=== PATIENT | male | born 2005 | race Hispanic/Latino ===

== ENCOUNTER 2024-08-10 14:40 | Emergency (ER) | payer BC ==
[2024-08-10] MEDS ORDERED: ONDANSETRON 4 MG/2 ML VIAL ONE (15:11)
[2024-08-10] MEDS ORDERED: KETOROLAC 30 MG/ML INJ ONE (15:11)
[2024-08-10] MEDS ORDERED: MULTIVITAMINS 10 ML VIAL (INJ) IV ONE (15:11)
[2024-08-10] MEDS ORDERED: THIAMINE 200 MG/2 ML INJ ONE (15:11)
[2024-08-10] MEDS ORDERED: FOLIC ACID 5 MG/ML VIAL ONE (15:12)
[2024-08-10] MEDS ORDERED: NA CHLORIDE 0.9% 1,000 ML ONE (15:13)
--- NOTE | 2024-08-10 15:33 | RAD REPORT ---
EXAMINATION: CT HEAD WITHOUT CONTRAST CT CERVICAL SPINE WITHOUT CONTRAST CLINICAL INDICATION: Syncope. Head and neck injury status post fall. Head and neck pain TECHNIQUE: Axial CT images from the skull base to the vertex without intravenous contrast. Axial CT i mages through the cervical spine were obtained without intravenous contrast. Sagittal and coronal reformatted images were created from the data set. Coronal and sagittal reformatted images were creat ed from the data set. One or more of the following dose reduction techniques were used: Automated exposure control, adjustment of the mA and/or kV according to patient size, and/or iterative reconstr uction. Unless otherwise specified, incidental findings do not require dedicated imaging follow-up. [id number]. Comparison: none FINDINGS: An intracranial bleed is not seen. Ventricles are normal in caliber. No significant hypodensity within the brain No extra-axial fluid collection. No fluid within the sinuses/mastoids No fracture or dislocation is seen involving the cervical spine. IMPRESSION: No acute intracranial abnormality noted A cervical fracture is not seen. If the patient continues to have symptoms to suggest acute FLOAT [employer]ILDER/spinal pathology then MRI would be rec ommended
[2024-08-10 15:55] LABS: Absolute Eosinophils 0.1 K/uL (0-0.5); Absolute Lymphocytes (CBC) 1.4 K/uL (0.7-4.9); Absolute Monocytes 0.6 K/uL (0.1-1.3); Basophils % 0.4 % (0-1.3); Eosinophils % 0.7 % (0-4.4); Hematocrit 41.5 % (39.6-49.0); Hemoglobin 14.4 g/dL (13.6-17.9); Lymphocytes % 15.4 % (15.3-44.8); MCH 30.9 pg (27.0-35.0); MCHC 34.6 g/dL (32.0-36.0); MCV 89.3 fL (80-100); MPV 9.5 fL (7.6-11.3); Neutrophils % 76.5 % (41.7-73.7); Platelets 219 thou/uL (152-406); RBC Red Blood Cell Count 4.65 M/uL (4.33-5.43); Red Cell Distribution Width 13.3 % (12.1-15.2)
[2024-08-10 16:11] LABS: PT Prothrombin Time 12.1 SECONDS (10.0-13.0); PTT, Activated Partial Thromb 28.4 SECONDS (24.3-36.9); Protime INR 1.06
[2024-08-10 16:25] LABS: ALT/SGPT 23 U/L (16-61); AST/SGOT 16 U/L (15-37); Albumin 4.4 g/dL (3.4-5.0); Albumin/Globulin Ratio 1.2 (1.1-1.8); Alkaline Phosphatase 89 U/L (45-117); BUN Blood Urea Nitrogen 14 mg/dL (7-18); Bicarbonate 22 mEq/L (21-32); Bilirubin Direct 0.2 mg/dL (0-0.2); Bilirubin Indirect, Calculated 0.3 mg/dL (0.2-0.8); Bilirubin Total 0.5 mg/dL (0.2-1.0); Globulin 3.8 g/dL (2.3-3.5); Glomerular Filtration Rate 122 ml/min (=/>90); Glucose Level 99 mg/dL (74-106); Protein, Total 8.2 g/dL (6.4-8.2); Sodium Level 135 mEq/L (136-145)
--- NOTE | 2024-08-10 16:35 | EDPHYS ---
Physician Documentation [facility] Name: Sascha Banda Age: 18 yrs Sex: Male : 2005 Arrival Date: 08/10/2024 Time: 14:40 Bed 20 Private MD: ED Physician Calvin Fuller HPI: 08/10 14:49 This 18 yrs old Male presents to ER via EMS with complaints of Syncope. vincent 14:49 The patient has experienced syncope, became unresponsive, collapsed. Onset: The vincent symptoms/episode began/occurred just prior to arrival. Duration: This was a single episode, that lasted 20 second(s). Context: the episode(s) was witnessed, by family. Associated injury: Head/face: pain. Associated signs and symptoms: Pertinent positives: headache, nausea. Current symptoms: headache, that is mild, that is moderate. The patient has not experienced similar symptoms in the past. Historical: - Allergies: 14:45 No Known Allergies; bp - Immunization history:: Adult Immunizations up to date. - Infectious Disease History:: Denies. - Social history:: Smoking status: Patient denies any tobacco usage or history of. - Family history:: not pertinent. ROS: 14:49 Constitutional: Negative for fever, chills, and weight loss, Eyes: Negative for injury, vincent pain, redness, and discharge, ENT: Negative for injury, pain, and discharge, Neck: Negative for injury, pain, and swelling, Cardiovascular: Negative for chest pain, palpitations, and edema, Respiratory: Negative for shortness of breath, cough, wheezing, and pleuritic chest pain, Abdomen/GI: Negative for abdominal pain, nausea, vomiting, diarrhea, and constipation, Back: Negative for injury and pain, : Negative for injury, bleeding, discharge, and swelling, MS/Extremity: Negative for injury and deformity, Skin: Negative for injury, rash, and discoloration, Neuro: Negative for headache, weakness, numbness, tingling, and seizure, Psych: Negative for depression, anxiety, suicide ideation, homicidal ideation, and hallucinations, Allergy/Immunology: Negative for hives, rash, and allergies, Endocrine: Negative for neck swelling, polydipsia, polyuria, polyphagia, and marked weight changes, Hematologic/Lymphatic: Negative for swollen nodes, abnormal bleeding, and unusual bruising, Exam: 14:49 Constitutional: This is a well developed, well nourished patient who is awake, alert, vincent and in no acute distress. Head/Face: Normocephalic, atraumatic. Eyes: Pupils equal round and reactive to light, extra-ocular motions intact. Lids and lashes normal. Conjunctiva and sclera are non-icteric and not injected. Cornea within normal limits. Periorbital areas with no swelling, redness, or edema. ENT: Nares patent. No nasal discharge, no septal abnormalities noted. Tympanic membranes are normal and external auditory canals are clear. Oropharynx with no redness, swelling, or masses, exudates, or evidence of obstruction, uvula midline. Mucous membranes moist. Neck: Trachea midline, no thyromegaly or masses palpated, and no cervical lymphadenopathy. Supple, full range of motion without nuchal rigidity, or vertebral point tenderness. No Meningismus. Chest/axilla: Normal chest wall appearance and motion. Nontender with no deformity. No lesions are appreciated. Cardiovascular: Regular rate and rhythm with a normal S1 and S2. No gallops, murmurs, or rubs. Normal PMI, no JVD. No pulse deficits. Respiratory: Lungs have equal breath sounds bilaterally, clear to auscultation and percussion. No rales, rhonchi or wheezes noted. No increased work of breathing, no retractions or nasal flaring. Abdomen/GI: Soft, non-tender, with normal bowel sounds. No distension or tympany. No guarding or rebound. No evidence of tenderness throughout. Back: No spinal tenderness. No costovertebral tenderness. Full range of motion. Skin: Warm, dry with normal turgor. Normal color with no rashes, no lesions, and no evidence of cellulitis. MS/ Extremity: Pulses equal, no cyanosis. Neurovascular intact. Full, normal range of motion., bilateral aka Neuro: Awake and alert, GCS 15, oriented to person, place, time, and situation. Cranial nerves II-XII grossly intact. Motor strength 5/5 in all extremities. Sensory grossly intact. Cerebellar exam normal. Normal gait. Psych: Awake, alert, with orientation to person, place and time. Behavior, mood, and affect are within normal limits. 14:49 ECG was reviewed by the Attending Physician. 15:49 ECG was reviewed by the Attending Physician. [facility] Vital Signs: 14:46 BP 128 / 80; Pulse 100; Resp 18; Temp 97.8(TE); Pulse Ox 100% on R/A; Weight 61.23 kg; hb Height 5 ft. 9 in. ; Pain 7/10; 18:15 BP 131 / 75; Pulse 95; Resp 16; Pulse Ox 100% ; bp 14:46 Body Mass Index 19.94 (61.23 kg, 175.26 cm) hb 14:46 Pain Scale: Adult hb MDM: 14:45 Medical Screening Exam initiated vincent 14:51 Differential Diagnosis: aortic aneurysm, cardiac arrhythmia, emotional response, GI vincent bleed, idiopathic syncope, vasovagal episode. Data reviewed: vital signs, nurses notes, EMS record, lab test result(s), EKG, radiologic studies, CT scan. Consideration of Admission/Observation Escalation of care including admission/observation considered. I considered the following discharge prescriptions or medication management in the emergency department Medications were administered in the Emergency Department. See MAR. Independent interpretation of the following test(s) in the Emergency Department EKG: See my EKG interpretation above. Test considered but Not performed: Ultrasound no 2 d echo. Historians other than the Patient: EMS: ems well informed. Care significantly affected by the following chronic conditions: etoh heavy. Counseling: I had a detailed discussion with the patient and/or guardian regarding the historical points, exam findings, and any diagnostic results supporting the discharge/admit diagnosis, lab results, radiology results, the need for outpatient follow up, for definitive care, a family practitioner. 08/10 14:48 Order name: Acetaminophen; Complete Time: 16:35 [facility] 08/10 14:48 Order name: Basic Metabolic Panel; Complete Time: 16:35 [facility] 08/10 14:48 Order name: CBC with Diff; Complete Time: 16:19 [facility] 08/10 14:48 Order name: ETOH Level; Complete Time: 16:35 [facility] 08/10 14:48 Order name: Hepatic Function; Complete Time: 16:35 [facility] 08/10 14:48 Order name: PT-INR; Complete Time: 16:19 [facility] 08/10 14:48 Order name: Ptt, Activated; Complete Time: 16: [facility] 08/10 14:48 Order name: Salicylate; Complete Time: 18:25 [facility] 08/10 14:48 Order name: Urinalysis w/ reflexes; Complete Time: 18:25 [facility] 08/10 14:48 Order name: Urine Drug Screen; Complete Time: 18:25 [facility] 08/10 14:48 Order name: CT Head C Spine; Complete Time: 15:46 [facility] 08/10 14:48 Order name: EKG; Complete Time: 14:49 [facility] 08/10 14:48 Order name: EKG - Nurse/Tech; Complete Time: 15:50 [facility] 08/10 14:48 Order name: IV Saline Lock; Complete Time: 15:25 [facility] 08/10 14:48 Order name: Labs collected and sent; Complete Time: 15:25 [facility] 08/10 14:48 Order name: Suicide Screening ([place]); Complete Time: 15:07 [facility] 08/10 16:20 Order name: PO challenge: juice; Complete Time: 16:27 [facility] EC:49 Rate is 78 beats/min. Rhythm is regular. QRS Patten is Normal. [place] interval is shortened vincent at 106 msec. QRS interval is normal. QT interval is normal. No Q waves. T waves are Normal. No ST changes noted. Clinical impression: NSR w/ Non-specific ST/T Changes and No evidence of ischemia. Interpreted by me. Reviewed by me. Administered Medications: 15:24 Drug: Thiamine IV 100 mg IV at per protocol once Route: IV; Rate: per protocol; Site: bp right forearm; 18:30 Follow up: IV Status: Completed infusion bp 15:25 Drug: NS 0.9% IV 1000 ml IV at 1000 ml once; to be given as a bolus over 60 minutes bp Route: IV; Rate: 1000 ml; Site: right forearm; 18:30 Follow up: IV Status: Completed infusion bp 15:25 Drug: Banana Bag - (Multivitamin IV 1 amp, NS 0.9% IV 1000 ml, Thiamine IV 100 mg, bp foLIC Acid IVPB 1 mg) IV at 500 ml/hr once Route: IV; Rate: 500 ml/hr; Site: right forearm; 18:30 Follow up: IV Status: Completed infusion bp 15:25 Drug: Ondansetron IVP 4 mg IVP once; over 2 minutes Route: IVP; Site: right forearm; bp 18:30 Follow up: Response: No adverse reaction bp 15:25 Drug: Ketorolac IVP 15 mg IVP once Route: IVP; Site: right forearm; bp 18:30 Follow up: Response: No adverse reaction bp Disposition Summary: 08/10/24 16:35 Discharge Ordered Notes: Location: Home vincent Problem: new vincent Symptoms: have improved vincent Condition: Stable vincent Diagnosis - Syncope Near vincent - Alcohol abuse, uncomplicated vincent Followup: vincent - With: Private Physician - When: 2 - 3 days - Reason: Recheck today's complaints, Continuance of care, Re-evaluation by your physician Discharge Instructions: - Discharge Summary Sheet vincent - Alcohol Use Disorder vincent - Near-Syncope vincent - Substance Use Disorder vincent - Supporting Someone With an Addiction vincent - Near-Syncope, [id number] vincent - Alcohol Abuse and Nutrition vincent Forms: - Medication Reconciliation Form vincent - Antibiotic Education vincent - Prescription Opioid Use vincent - Patient Portal Instructions vincent - Leadership Thank You Letter vincent Signatures: Dispatcher [employer] Calvin Christianson MD MD cha Baxter, Heather, RN RN Lazaro Magallon RN RN bp
--- NOTE | 2024-08-10 16:35 | ER ---
Nurse's Notes [facility] Name: Sascha Banda Age: 18 yrs Sex: Male : 2005 Arrival Date: 08/10/2024 Time: 14:40 Bed 20 Private MD: Diagnosis: Syncope Near;Alcohol abuse, uncomplicated Presentation: 08/10 14:46 Chief complaint: EMS states: Witnessed syncopal episode, fell and hit head on hard hb floor, now c/o headache. Reports drinking "a lot" of alcohol last night. Coronavirus screen: At this time, the client does not indicate any symptoms associated with coronavirus-19. Ebola Screen: No symptoms or risks identified at this time. Initial Sepsis Screen: Does the patient meet any 2 criteria? No. Patient's initial sepsis screen is negative. Does the patient have a suspected source of infection? No. Patient's initial sepsis screen is negative. Risk Assessment: Do you want to hurt yourself or someone else? Patient reports no desire to harm self or others. Onset of symptoms was August 10, 2024. 14:46 Method Of Arrival: EMS: [facility] 14:46 Acuity: ROWAN 3 hb Triage Assessment: 14:50 General: Appears in no apparent distress. Behavior is calm, cooperative, appropriate bp for age. Pain: Denies pain. EENT: No deficits noted. Neuro: Level of Consciousness is awake, alert, obeys commands, Oriented to Appropriate for age. Cardiovascular: Rhythm is sinus rhythm. Respiratory: No deficits noted. GI: No signs and/or symptoms were reported involving the gastrointestinal system. : No signs and/or symptoms were reported regarding the genitourinary system. Derm: No deficits noted. Musculoskeletal: No deficits noted. Historical: - Allergies: 14:45 No Known Allergies; bp - Immunization history:: Adult Immunizations up to date. - Infectious Disease History:: Denies. - Social history:: Smoking status: Patient denies any tobacco usage or history of. - Family history:: not pertinent. Screenin:50 [facility] ED Fall Risk Assessment (Adult) History of falling in the last 3 months, bp including since admission No falls in past 3 months (0 pts) Confusion or Disorientation No (0 pts) Intoxicated or Sedated No (0 pts) Impaired Gait No (0 pts) Mobility Assist Device Used No (0 pt) Altered Elimination No (0 pt) Score/Fall Risk Level 0 - 2 = Low Risk Oriented to surroundings. Abuse screen: Denies threats or abuse. Denies injuries from another. Nutritional screening: No deficits noted. Tuberculosis screening: No symptoms or risk factors identified. Assessment: 14:50 General: Appears in no apparent distress. comfortable, Behavior is cooperative, bp appropriate for age, anxious. Vital Signs: 14:46 BP 128 / 80; Pulse 100; Resp 18; Temp 97.8(TE); Pulse Ox 100% on R/A; Weight 61.23 kg; hb Height 5 ft. 9 in. ; Pain 7/10; 18:15 BP 131 / 75; Pulse 95; Resp 16; Pulse Ox 100% ; bp 14:46 Body Mass Index 19.94 (61.23 kg, 175.26 cm) hb 14:46 Pain Scale: Adult hb ED Course: 14:45 Patient arrived in ED. bp 14:45 Calvin Fuller MD is Attending Physician. vincent 14:47 Lazaro Cruz, TREASURE is Primary Nurse. bp 14:48 Triage completed. hb 14:50 Arm band placed on. hb 14:50 Patient has correct armband on for positive identification. bp 15:09 CT Head C Spine In Process Unspecified. EDMS 15:25 Initial lab(s) drawn, by me, sent to lab. Inserted saline lock: 20 gauge in right bp forearm, using aseptic technique. Blood collected. Flushed with 10 mL NS. 15:51 EKG done, by ED staff, reviewed by Calvin Fuller MD. em1 18:29 No provider procedures requiring assistance completed. IV discontinued, intact, bp bleeding controlled, No redness/swelling at site. Pressure dressing applied. Administered Medications: 15:24 Drug: Thiamine IV 100 mg IV at per protocol once Route: IV; Rate: per protocol; Site: bp right forearm; 18:30 Follow up: IV Status: Completed infusion bp 15:25 Drug: NS 0.9% IV 1000 ml IV at 1000 ml once; to be given as a bolus over 60 minutes bp Route: IV; Rate: 1000 ml; Site: right forearm; 18:30 Follow up: IV Status: Completed infusion bp 15:25 Drug: Banana Bag - (Multivitamin IV 1 amp, NS 0.9% IV 1000 ml, Thiamine IV 100 mg, bp foLIC Acid IVPB 1 mg) IV at 500 ml/hr once Route: IV; Rate: 500 ml/hr; Site: right forearm; 18:30 Follow up: IV Status: Completed infusion bp 15:25 Drug: Ondansetron IVP 4 mg IVP once; over 2 minutes Route: IVP; Site: right forearm; bp 18:30 Follow up: Response: No adverse reaction bp 15:25 Drug: Ketorolac IVP 15 mg IVP once Route: IVP; Site: right forearm; bp 18:30 Follow up: Response: No adverse reaction bp Medication: 14:50 VIS not applicable for this client. bp Outcome: 16:35 Discharge ordered by . vincent 18:29 Discharged to home ambulatory, with family, bp 18:29 Condition: stable 18:29 Discharge instructions given to patient, family, Instructed on discharge instructions, follow up and referral plans. Demonstrated understanding of instructions, follow-up care, 18:31 Patient left the ED. bp Signatures: Dispatcher [employer] EDCalvin Park MD MD cha Martinez, Eric em1 Rochelle Cobb, RN RN Lazaro Cruz, TREASURE RN bp
[2024-08-10 17:28] LABS: Specific Gravity 1.021 (1.005-1.030); Sqamous Epithelial None Seen /HPF (None Seen); Urine Bacteria <20 /HPF (<20); Urine Bilirubin NEGATIVE (Negative); Urine Blood 1+ (Negative); Urine Clarity Clear (Clear); Urine Color Light-Yellow (Yellow); Urine Culture Reflex Order NOT NEEDED; Urine Glucose NEGATIVE (Negative); Urine Ketones 2+ (Negative); Urine Microscopic Reflex YN ORDER UMIC; Urine Mucus Slight /HPF (None Seen); Urine Nitrite NEGATIVE (Negative); Urine Protein 1+ (Negative); Urine RBC <5 /HPF (None Seen); Urine Urobilinogen Normal (Normal); Urine WBC <5 /HPF (<5)
[2024-08-10 17:44] LABS: Barbiturates NEGATIVE (NEGATIVE); Benzodiazepines NEGATIVE (NEGATIVE); Cocaine NEGATIVE (NEGATIVE); METHAMPHETAM NEGATIVE (NEGATIVE); Methadone NEGATIVE (NEGATIVE); Opiates NEGATIVE (NEGATIVE); Phencyclidine NEGATIVE (NEGATIVE); THC Cannibis POSITIVE (NEGATIVE)
[2024-08-10 18:44] VITALS: O2SAT 100
[2024-08-10 18:46] VITALS: BP 128/80; TEMP 97.8
--- NOTE | 2024-08-11 11:58 | EKG ---
Test Date: 2024-08-10 Test Time: 15:46:34 Clinical Practice Consultant: SYMONE MEASUREMENT RESULTS: Intervals: Rate: 78 DC: 106 QRSD: 90 QT: 366 QTc: 417 [place]: P: 81 DC: 106 QRS: 80 T: 60 INTERPRETIVE STATEMENTS: Sinus rhythm with sinus arrhythmia with short DC Otherwise normal ECG No previous ECG available for comparison Electronically Signed On 08-11-24 11:56:43 [employer]OD [employer] by Jason Alcocer
== END 2024-08-10 18:31 | disposition home or self-care (01) ==
LOC: ER 14:40
DX: R55 Syncope and collapse (principal); F10.10 Alcohol abuse, uncomplicated
CPT/HCPCS: 96365; 93005; 85025; 81001; 80048; 36415; 85610; 80076; 85730; 80307; 70450; 72125; 96375; 99284; 96366; 80143; 80179; 82077; J3411; J2405; J7030